=== PATIENT | female | born 1965 | race Caucasian/White ===

== ENCOUNTER 2019-08-02 20:53 | Emergency (ER) | payer SELFPAY ==
--- NOTE | 2019-08-02 20:56 | ECG_ITS ---
Measurements Intervals [place] Rate: 92 P: 78 MA: 161 QRS: 82 QRSD: 93 T: 68 QT: 368 QTc: 455 SINUS RHYTHM No previous ECG available for comparison Electronically Signed On 08-03-2019 18:01:48 CDT by Brett Oviedo M.D. [id number]
--- NOTE | 2019-08-02 20:57 | W.ED.NEUROSD ---
HPI - Neuro Symptoms/Deficit General: Chief Complaint: Neuro Symptoms/Deficit Stated Complaint: DIFF SPEAKING Time Seen by Provider: 08/02/19 20:55 Source: patient and EMS Mode of arrival: EMS History of Present Illness: HPI Narrative: 53-year-old female came in by EMS states she had difficulty speaking 25 minutes before arrival. She states she had some numbness in all extremities as well. Patient was very anxious while given 2 mg of Ativan by EMS. Patient states that her speaking is improved but states this feels like her legs are heavy. She has had no previous symptoms like this previously. Onset (ago): minute(s) (25) Location: speech Severity: moderate Associated symptoms: Deny chest pain, headache(s), nausea or vomiting Review of Systems Const: Denies: fever, chills, body aches or change in appetite Eyes: Denies: blurry vision or eye discomfort ENMT: Denies: throat pain or dental pain Card: Denies: chest pain Resp: Denies: shortness of breath GI: Denies: abdominal pain, nausea, vomiting or diarrhea : Denies: painful urination Musc: Denies: neck pain or back pain Skin/Breast: Denies: rash Neuro: Reports: weakness in extremities; Denies: headache Psych: Denies: depression Antione/Lymph: Denies: easy bruising All/Imm: Denies: hives PFSH ED PFSH: Social History Smoking and tobacco status: current every day smoker Physical Exam Const: COMMON NORMALS: no apparent distress, oriented x3 and healthy appearing GENERAL APPEARANCE: anxious HENMT: COMMON NORMALS: normocephalic and head/scalp atraumatic HEAD & SCALP: normocephalic and atraumatic Eye: COMMON NORMALS: PERRL and EOMs intact bilaterally PUPIL: Yes PERRL Neck/C-Spine: COMMON NORMALS: full ROM and supple Chest: COMMONS NORMALS: inspection of chest normal and palpation of chest normal Resp: COMMON NORMALS: normal respiratory effort, no retractions, no use of accessory muscles and clear to auscultation bilaterally AUSCULTATION: clear to auscultation bilaterally Cardio: COMMON NORMALS: regular rate, regular rhythm and no murmurs RATE: regular rate RHYTHM: regular rhythm GI: COMMON NORMALS: normal to inspection, nondistended, normoactive bowel sounds, soft to palpation, non-tender and no masses PALPATION: Yes soft Extremity: COMMON NORMALS: normal to inspection and full ROM Neuro: COMMON NORMALS: oriented x3 and moves all extremities; negative for no focal motor deficits (slight weakness in left leg) Psych: COMMON NORMALS: mental status grossly normal, thought process normal and cooperative THOUGHT PROCESS: normal thought process Skin: COMMON NORMALS: no rashes or lesions noted and no wounds GENERAL SKIN EXAM: no rashes or lesions noted Course Vital Signs: Vital signs: Vital Signs Temperature 97.9 F 08/02/19 21:05 Pulse Rate 90 08/03/19 01:20 Respiratory Rate 20 H 08/03/19 01:20 Blood Pressure 135/80 08/03/19 01:20 Pulse Oximetry 98 08/03/19 01:20 MDM - Neuro Symptoms/Deficit MDM Narrative: Medical decision making narrative: Patient presents here with methamphetamine abuse. Patient complained of difficulty speaking before she arrived. Patient's had no signs of stroke here. I believe this is likely related to her drug use. Patient was observed here and is now able ambulate and has no complaints. Patient CT head is normal. Patient stable for discharge is to follow-up primary care doctor in 1 to 2 days. Patient is return if worsening. Lab Data: Labs: Lab Results 08/02/19 08/02/19 08/02/19 Range/Units 21:07 21:07 21:07 WBC 9.2 (4.0-10.0) 10^3/ uL RBC 4.37 (4.1-5.3) 10^6/u L Hgb 13.2 (11.5-15.3) g/dL Hct 38.8 (37.0-47.0) % MCV 88.8 (81-99) fL MCH 30.2 (28.0-34.0) pg MCHC 34.0 (30.0-36.0) g/dL RDW 12.8 (12.1-15.1) % Plt Count 308 (130-400) 10^3/c mm MPV 9.1 (7.4-10.4) fL Neut % (Auto) 36.7 % Lymph % (Auto) 47.3 % [place] % (Auto) 8.9 % Eos % (Auto) 6.2 % Baso % (Auto) 0.7 % Neut # (Auto) 3.4 (1.8-7.7) 10^3/u L Lymph # (Auto) 4.4 (0.8-4.8) 10^3/u L [place] # (Auto) 0.8 (0.2-0.9) 10^3/u L Eos # (Auto) 0.6 (0.0-0.8) 10^3/u L Baso # (Auto) 0.1 (0.0-0.1) 10^3/u L Nucleated RBC % (a uto) 0 % Nucleated RBCs # 0.0 /100WBC PT 13.40 H (10.5-13.3) SECO NDS INR 0.99 (0.8-1.2) APTT 29.6 (23.9-36.7) SECO NDS Sodium 140 (136-145) mmol/L Potassium 3.9 (3.5-5.1) mmol/L Chloride 103 (98-107) mmol/L Carbon Dioxide 22 (22-29) mmol/L Anion Gap 18.9 (5-19) BUN 18 (6-20) mg/dL Creatinine 0.8 (0.5-0.9) mg/dL GFR Calculation 75.6 L (90-130) mL/min Glucose 144 H (65-115) mg/dL Calculated Osmolal ity 289 (285-295) mOsm/k g Calcium 10.0 (8.5-10.5) mg/dL Total Bilirubin 0.3 (0.15-1.2) mg/dL AST 18 (0-32) U/L ALT 17 (0-33) U/L Alkaline Phosphata se 109 H (35-105) IU/L Total Protein 7.4 (6.6-8.7) g/dL Albumin 4.5 (3.5-5.2) g/dL Globulin 2.9 (1.3-4.6) g/dL Urine Color (Yellow) Urine Appearance (CLEAR) Urine pH (5-7) Ur Specific Gravit y (1.005-1.030) Urine Protein (Negative) Urine Glucose (UA) (Normal) Urine Ketones (Negative) Urine Blood (Negative) Urine Nitrate (Negative) Urine Bilirubin (NEGATIVE) Urine Urobilinogen (Negative) mg/dL Ur Leukocyte Dia ase (Negative) Urine RBC (0-2) /hpf Urine WBC (0-5) /hpf Ur Squamous Epith Cells (0-5) Urine Bacteria (NONE) Urine Opiates Scre en (Negative) ng/mL Ur Barbiturates Sc reen (Negative) ng/mL Ur Phencyclidine S crn (Negative) ng/mL Ur Amphetamines Sc reen (Negative) ng/mL U Benzodiazepines Scrn (Negative) ng/mL Urine Cocaine Scre en (Negative) ng/mL U Marijuana (THC) Screen (Negative) ng/mL 08/02/19 08/02/19 Range/Units 22:55 22:55 WBC (4.0-10.0) 10^3/ uL RBC (4.1-5.3) 10^6/u L Hgb (11.5-15.3) g/dL Hct (37.0-47.0) % MCV (81-99) fL MCH (28.0-34.0) pg MCHC (30.0-36.0) g/dL RDW (12.1-15.1) % Plt Count (130-400) 10^3/c mm MPV (7.4-10.4) fL Neut % (Auto) % Lymph % (Auto) % [place] % (Auto) % Eos % (Auto) % Baso % (Auto) % Neut # (Auto) (1.8-7.7) 10^3/u L Lymph # (Auto) (0.8-4.8) 10^3/u L [place] # (Auto) (0.2-0.9) 10^3/u L Eos # (Auto) (0.0-0.8) 10^3/u L Baso # (Auto) (0.0-0.1) 10^3/u L Nucleated RBC % (a uto) % Nucleated RBCs # /100WBC PT (10.5-13.3) SECO NDS INR (0.8-1.2) APTT (23.9-36.7) SECO NDS Sodium (136-145) mmol/L Potassium (3.5-5.1) mmol/L Chloride (98-107) mmol/L Carbon Dioxide (22-29) mmol/L Anion Gap (5-19) BUN (6-20) mg/dL Creatinine (0.5-0.9) mg/dL GFR Calculation (90-130) mL/min Glucose (65-115) mg/dL Calculated Osmolal ity (285-295) mOsm/k g Calcium (8.5-10.5) mg/dL Total Bilirubin (0.15-1.2) mg/dL AST (0-32) U/L ALT (0-33) U/L Alkaline Phosphata se (35-105) IU/L Total Protein (6.6-8.7) g/dL Albumin (3.5-5.2) g/dL Globulin (1.3-4.6) g/dL Urine Color Yellow (Yellow) Urine Appearance Clear (CLEAR) Urine pH 6 (5-7) Ur Specific Gravit y 1.020 (1.005-1.030) Urine Protein Trace (Negative) Urine Glucose (UA) Norm (Normal) Urine Ketones Negative (Negative) Urine Blood Trace H (Negative) Urine Nitrate Negative (Negative) Urine Bilirubin 1+ H (NEGATIVE) Urine Urobilinogen 4 H (Negative) mg/dL Ur Leukocyte Dia ase Negative (Negative) Urine RBC 0-4 H (0-2) /hpf Urine WBC None (0-5) /hpf Ur Squamous Epith Cells 0-4 H (0-5) Urine Bacteria 4+ H (NONE) Urine Opiates Scre en Negative (Negative) ng/mL Ur Barbiturates Sc reen Negative (Negative) ng/mL Ur Phencyclidine S crn Negative (Negative) ng/mL Ur Amphetamines Sc reen Positive H (Negative) ng/mL U Benzodiazepines Scrn Positive H (Negative) ng/mL Urine Cocaine Scre en Negative (Negative) ng/mL U Marijuana (THC) Screen Positive H (Negative) ng/mL Imaging Data^: CT Head: Attestation: I personally reviewed and interpreted this imaging study as follows: Radiologist's impression: [address] [address] [address] Scan Report Signed Patient: Helen Mcclellan Unit #: [id number] : 1965 Age/Sex: 53 / F ADM Date: 08/02/19 Loc: ER Room/Bed: Attending Dr: Ordering Provider/Ordering MD: Michael Bobby MD Date of Service: 08/02/19 Procedure(s): CT head wo con* [id number] Accession Number(s): [id number] Report Number: [id number] PROCEDURE INFORMATION: Exam: CT Head Without Contrast Exam date and time: 08/02/2019 8:57 PM Age: 53 years old Clinical indication: Speech disturbance; Patient HX: Sudden onset of stuttered speech. ; Additional info: Symptoms of acute stroke TECHNIQUE: Imaging protocol: Computed tomography of the head without contrast. Total DLP: 1904.034 mGy-cm Radiation optimization: All CT scans at this facility use at least one of these dose optimization techniques: automated exposure control; mA and/or kV adjustment per patient size (includes targeted exams where dose is matched to clinical indication); or iterative reconstruction. Other technique: STROKE PROTOCOL was implemented. COMPARISON: No relevant prior studies available. FINDINGS: Brain: No hemorrhage or CT evidence of acute infarction is seen. Ventricles: Normal. No ventriculomegaly. Bones/joints: Unremarkable. No acute fracture. Sinuses: Sphenoid sinusitis is noted. Mastoid air cells: Visualized mastoid air cells are well aerated. Soft tissues: Unremarkable. CT/CT head wo con* [id number] IMPRESSION: No acute intracranial abnormality. Mild sinusitis is noted. EKG Data^: EKG 1: Attestation: I personally reviewed and interpreted this EKG as follows: EKG interpretation date: 08/02/19 EKG interpretation time: 21:37 Interpretation: nsr hr [address] or t wave abnormalities qrs 93 qtc 417 Discharge Plan Discharge Patient Disposition: Home, Self-Care Clinical Impression: Methamphetamine abuse, Dysarthria Condition: Stable Discharge Orders: Discharge Order (Routine); Ordered 08/03/19 Ordered By: Michael Bobby Discharge Diet: Advance as tolerated Discharge Activity: Resume usual activity Patient Instructions: Methamphetamine Abuse (ED) Discharge Date/Time: 08/03/19 01:20 Coding Level of Care Code ED Proof Machine Operator for Chg Fwd Exam Comprehensive
[2019-08-02 21:05] VITALS: BP 121/80; PULSE 99; RESP 20; TEMP 36.6; O2SAT 100; BMI 25.9
[2019-08-02 21:13] LABS: Basophils # 0.1 10^3/uL (0.0-0.1); Basophils % 0.7 %; Eosinophils # 0.6 10^3/uL (0.0-0.8); Eosinophils % 6.2 %; Hematocrit 38.8 % (37.0-47.0); Hemoglobin 13.2 g/dL (11.5-15.3); Lymphocytes # 4.4 10^3/uL (0.8-4.8); Lymphocytes % 47.3 %; Mean Corpuscular Hemoglobin 30.2 pg (28.0-34.0); Mean Corpuscular Volume 88.8 fL (81-99); Mean Platelet Volume 9.1 fL (7.4-10.4); Monocytes # 0.8 10^3/uL (0.2-0.9); Monocytes % 8.9 %; Neutrophils # 3.4 10^3/uL (1.8-7.7); Neutrophils % 36.7 %; Nucleated Red Blood Cells % 0 %; Platelet Count 308 10^3/cmm (130-400); Red Blood Count 4.37 10^6/uL (4.1-5.3); Red Cell Distribution Width 12.8 % (12.1-15.1); White Blood Count 9.2 10^3/uL (4.0-10.0)
--- NOTE | 2019-08-02 21:17 | P.PNCC_ITS ---
Stroke Alert Activation ED Arrival Date: 08/02/19 Last Known Normal/at Baseline: < 1 hour ago Stroke Alert Activated by: er Stroke Alert Activation Date: 08/02/19 Stroke Alert Activation Time: 20:53 Stroke MD @ Bedside Date: 08/02/19 Stroke MD @ Bedside Time: 21:00 NIH Stroke Scale Time: 21:20 NIH Stroke Scale Score: NIH Stroke Scale Score: 0 Stroke Alert Data/Treatment Other Information: Sudden onset at work of difficulty speaking and seizure like activity which was described by EMS as shaking all over without loss of conciousness. This occured about 45 minutes prior to arrival to ER. She was given 2mg lorezepam by EMS. EMS did not note lateralized weakness. On arrival to ER was noted to have 'garbled speech and some confusion with drowsiness. she complained about 'heaviness' in all her extremities. On my exam, she has no drift in either arm or either leg. no ataxia. no cranial nerve deficit. no language deficit. no sensory deficit. She is not a candidate for thrombolysis as she has a nonfocal exam. She may have had either a seizure causing language dysfunction or a panic attack. Either of these were treated with the ativan administered by EMS, and the ativan likely resulted in the drowsiness and 'heaviness' noted on initial assesment in ER. I would recommend observation and an MRI brain to rule out structural cause for seizure as well as a UDS. Critical Care Time Critical Care Time: 30 - 74 mins Coding Level of Care Code Acute Integrated Logistics Programs Director for David Elias
[2019-08-02 21:31] LABS: INR 0.99 (0.8-1.2)
[2019-08-02 21:32] LABS: Partial Thromboplastin Time 29.6 SECONDS (23.9-36.7)
[2019-08-02 21:40] LABS: Alanine Aminotransferase 17 U/L (0-33); Albumin Level 4.5 g/dL (3.5-5.2); Alkaline Phosphatase 109 IU/L (35-105); Anion Gap 18.9 (5-19); Aspartate Amino Transferase 18 U/L (0-32); Blood Urea Nitrogen 18 mg/dL (6-20); Carbon Dioxide 22 mmol/L (22-29); Chloride 103 mmol/L (98-107); Globulin 2.9 g/dL (1.3-4.6); Glomerular Filtration Rate 75.6 mL/min (90-130); Glucose 144 mg/dL (65-115); Osmolality Calculated 289 mOsm/kg (285-295); Potassium 3.9 mmol/L (3.5-5.1); Sodium 140 mmol/L (136-145); Total Bilirubin 0.3 mg/dL (0.15-1.2); Total Protein 7.4 g/dL (6.6-8.7)
[2019-08-02 23:02] VITALS: BP 109/72; PULSE 87; RESP 20; O2SAT 98
[2019-08-02 23:03] VITALS: BP 109/72; PULSE 87; RESP 20
[2019-08-02 23:13] LABS: Glucose Urine UA Norm (Normal); Ketones Urine Negative (Negative); Protein Urine Trace (Negative); Urine Appearance Clear (CLEAR); Urine Color Yellow (Yellow); pH Urine 6 (5-7)
[2019-08-02 23:14] LABS: Add Urine Microscopic? YES; Bilirubin Urine 1+ (NEGATIVE); Blood Urine Trace (Negative); Leukocyte Esterase Urine Negative (Negative); Nitrate Urine Negative (Negative); Urobilinogen Urine 4 mg/dL (Negative)
[2019-08-02 23:30] VITALS: BP 99/73; PULSE 86; RESP 19
[2019-08-02 23:37] LABS: RBC Urine 0-4 /hpf (0-2)
[2019-08-02 23:38] LABS: Add Urine Culture? No; Bacteria Urine 4+; Squamous Epithelial Cell Urine 0-4 (0-5)
[2019-08-03] VITALS: BP 103/74; PULSE 84; RESP 18
[2019-08-03 00:01] LABS: Amphetamines Screen Urine Positive (Negative); Barbiturates Screen Urine Negative (Negative); Benzodiazepines Screen Urine Positive (Negative); Cocaine Screen Urine Negative (Negative); Opiate Screen Urine Negative (Negative); PCP Screen Urine Negative (Negative); THC Screen Urine Positive (Negative)
[2019-08-03 00:30] VITALS: BP 125/92; PULSE 79; RESP 20
[2019-08-03 01:00] VITALS: BP 121/73; PULSE 84; RESP 15
[2019-08-03 01:20] VITALS: BP 135/80; PULSE 90; RESP 20; O2SAT 98
== END 2019-08-03 01:20 | disposition home or self-care (01) ==
PROVIDERS: Emergency Provider Emergency Medicine
DX: F15.10 Other stimulant abuse, uncomplicated (principal); R47.1 Dysarthria and anarthria; F17.200 Nicotine dependence, unspecified, uncomplicated
CPT/HCPCS: 12345; 36415; 70450; 80053; 80306; 81001; 85025; 85610; 85730; 93005; 99284

== ENCOUNTER 2019-09-28 19:52 | Inpatient (IN) | payer SELFPAY ==
[2019-09-28 19:55] VITALS: BP 135/87; BP 140/78; PULSE 90; PULSE 92; RESP 18; RESP 20; TEMP 36.8; O2SAT 97; O2SAT 98; BMI 21.6
[2019-09-28] MEDS: diphenhydrAMINE 50 mg/mL SDV 1mL IM (20:15)
[2019-09-28] MEDS: haloperidol inj 5 mg/mL INJ 1 mL IM (20:15)
[2019-09-28 20:42] LABS: Basophils # 0.1 10^3/uL (0.0-0.1); Basophils % 0.7 %; Eosinophils # 0.3 10^3/uL (0.0-0.8); Eosinophils % 2.3 %; Hematocrit 41.5 % (37.0-47.0); Hemoglobin 13.7 g/dL (11.5-15.3); Lymphocytes # 4.1 10^3/uL (0.8-4.8); Lymphocytes % 35.2 %; Mean Corpuscular Hemoglobin 29.6 pg (28.0-34.0); Mean Corpuscular Volume 89.6 fL (81-99); Mean Platelet Volume 8.8 fL (7.4-10.4); Monocytes % 8.8 %; Neutrophils # 6.1 10^3/uL (1.8-7.7); Neutrophils % 52.7 %; Nucleated Red Blood Cells % 0 %; Platelet Count 284 10^3/cmm (130-400); Red Blood Count 4.63 10^6/uL (4.1-5.3); Red Cell Distribution Width 12.9 % (12.1-15.1); White Blood Count 11.5 10^3/uL (4.0-10.0)
--- NOTE | 2019-09-28 21:10 | W.ED.PSYCH ---
HPI - Psych General: Chief Complaint: Psychiatric Symptoms Stated Complaint: SI Time Seen by Provider: 09/28/19 19:59 History of Present Illness: HPI Narrative: Helen is a 54-year-old female who was brought in by police and EMS. Apparently she was at [facility] when she expressed up with the police that she had Ambien intended to take it to make the world go away. When pressed she admitted to being suicidal. Patient was brought here agitated and combative. She does admit to me that she wants to take the medicine to kill herself. Patient is tearful and acting bizarre and much meaningful history cannot be taken. Review of Systems General: Reports: ROS unobtainable due to medical condition PFSH ED PFSH: Social History Smoking and tobacco status: current every day smoker Physical Exam Const: COMMON NORMALS: no acute distress, patient oriented x3, healthy appearing and well nourished GENERAL APPEARANCE: cooperative, well kempt and well developed HENMT: COMMON NORMALS: normocephalic, atraumatic, hearing grossly normal bilaterally, external ears normal, EAC's normal, Normal external nose present and moist oral mucous membranes HEAD & SCALP: normocephalic and atraumatic NOSE: Normal external nose present and Normal nares present EXTERNAL EAR: Yes external ears normal EXTERNAL AUDITORY CANAL: EAC's normal MOUTH: Normal oral and palatal mucosa present, lip normal and tongue normal Eye: COMMON NORMALS: Equal, round and reactive pupils present, EOMs intact bilaterally, conjunctivae normal and no scleral icterus GENERAL EYE: appearance normal, both eyes and all related structures ALIGNMENT: Yes alignment normal PERIORBITAL: periorbital findings normal EYELID: eyelids normal CONJUNCTIVA: Yes conjunctivae normal SCLERA: sclerae normal PUPIL: Yes Equal, round and reactive pupils present Neck/C-Spine: COMMON NORMALS: full ROM, no lymphadenopathy, supple, no meningeal signs and no JVD GENERAL: Yes normal visual inspection and Yes trachea midline Chest: COMMONS NORMALS: normal inspection of the chest and normal palpation of entire chest wall Resp: COMMON NORMALS: normal respiratory effort, No retractions, No use of accessory muscles and clear to auscultation bilaterally EFFORT & INSPECTION: Yes able to speak in complete sentences and Yes symmetric chest movement AUSCULTATION: clear to auscultation bilaterally, no crackles, no rales, no rhonchi and no wheezes Cardio: COMMON NORMALS: no JVD, regular rate, regular rhythm, S1 normal heart sound present, S2 normal heart sound present, No gallops present (Cardio), No clicks present (Cardio), No murmurs present (Cardio) and No rub (Cardio) RATE: regular rate RHYTHM: regular rhythm HEART SOUNDS: S1 normal heart sound present and S2 normal heart sound present GI: COMMON NORMALS: Soft to palpation and No hepatosplenomegaly present PALPATION: Yes Soft to palpation, No Tenderness to palpation present (GI), No Guarding due to palpation present (GI), No Rigid due to palpation, Yes No hepatosplenomegaly present, No Hernia present, No Palpable mass present and No Pulsatile mass present : COMMON NORMALS: Yes no CVA tenderness BLADDER/KIDNEY EXAM: Yes no CVA tenderness EXTERNAL FEMALE EXAM: No Hernia present Back/Pelvis: COMMON NORMALS: no CVA tenderness, thoracic and lumbar spine normal to inspection, no thoracic nor lumbar tenderness and thoraco-lumbar ROM normal Extremity: COMMON NORMALS: normal to inspection, full ROM, capillary refill normal, no joint enlargement, no clubbing, cyanosis or edema and no calf tenderness Neuro: COMMON NORMALS: patient oriented x3, CN's II-XII intact bilaterally, moves all extremities, no focal motor deficits and no sensory deficits noted MENINGEAL SIGNS: Yes no meningeal signs SPEECH: speech normal Psych: APPEARANCE: Yes well kempt ATTITUDE: Yes uncooperative, Yes evasive, Yes Belligerent attititude/behavior present, Yes agitated and Yes aggressive ACTIVITY/MOTOR BEHAVIOR: Yes disorganized behavior and Yes restless SPEECH: Yes rapid, Yes loud and Yes Pressured speech present MOOD & AFFECT: Yes tearful Skin: COMMON NORMALS: no rashes or lesions noted, turgor normal, no jaundice, no petechiae and no mottling GENERAL SKIN EXAM: no rashes or lesions noted and turgor normal Discharge Plan Discharge Prescriptions: No Action Unable to Assess RF: 0 Coding Level of Care Code ED Bag End Sewer for Chg Jada
[2019-09-28 21:13] LABS: HCG, Serum Qual Negative (Negative)
[2019-09-28 21:18] LABS: Slide Review Slide Review Perform
[2019-09-28 21:20] LABS: Lithium 0.1 mmol/L (0.6-1.2)
[2019-09-28 21:23] LABS: Alanine Aminotransferase 13 U/L (0-33); Albumin Level 4.6 g/dL (3.5-5.2); Alkaline Phosphatase 106 IU/L (35-105); Anion Gap 16.4 (5-19); Aspartate Amino Transferase 17 U/L (0-32); Blood Urea Nitrogen 17 mg/dL (6-20); Calcium 9.7 mg/dL (8.5-10.5); Carbon Dioxide 22 mmol/L (22-29); Chloride 100 mmol/L (98-107); Creatine Phosphokinase 201 U/L (26-192); Globulin 2.9 g/dL (1.3-4.6); Glomerular Filtration Rate 87.9 mL/min (90-130); Glucose 104 mg/dL (65-115); Magnesium 2.2 mg/dL (1.7-2.3); Osmolality Calculated 277 mOsm/kg (285-295); Phenytoin Dilantin 0.8 ug/mL (10-20); Potassium 3.4 mmol/L (3.5-5.1); Sodium 135 mmol/L (136-145); Thyroid Stimulating Hormone 3.36 uIU/mL (0.27-4.20); Total Bilirubin 0.3 mg/dL (0.15-1.2); Total Protein 7.5 g/dL (6.6-8.7); Valproic Acid Level 2.8 mcg/mL (50-100)
[2019-09-28 21:32] LABS: Acetaminophen < 5.0 ug/mL (10-30); Alcohol Level < 10 mg/dL (0-10); Salicylate < 0.3 mg/dL (3-10)
[2019-09-28 22:29] VITALS: BP 110/69; PULSE 77; RESP 21; TEMP 36.6; O2SAT 96
[2019-09-28 22:35] VITALS: BP 110/69; PULSE 77; RESP 21; TEMP 36.6; O2SAT 96
[2019-09-29 06:00] VITALS: BP 123/78; PULSE 73; RESP 18; TEMP 36.9; O2SAT 97
[2019-09-29 14:00] VITALS: BP 114/77; PULSE 85; RESP 18; TEMP 36.7; O2SAT 97
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
[2019-09-29 21:39] VITALS: BP 110/76; PULSE 108; RESP 22; TEMP 36.8; O2SAT 95
[2019-09-30 06:00] VITALS: BP 113/74; PULSE 64; RESP 18; TEMP 36.6; O2SAT 98
[2019-09-30] MEDS: OLANZapine 5 mg ODT PO ×2 (07:09→21:38)
[2019-09-30] MEDS: lithium carbonate 150 mg Capsule PO ×2 (08:28→17:35)
--- NOTE | 2019-09-30 10:39 | PC.RESP ---
Smoking Cessation information and a schedule of classes to patient.
[2019-09-30 14:00] VITALS: BP 116/71; PULSE 70; RESP 18; TEMP 37; O2SAT 97
--- NOTE | 2019-09-30 20:50 | PM.NPN ---
Subjective NPU Subjective: Interval history: Ms. Mcclellan is smoother in her speech and more organized in her thinking. The pressure of speech has waned. She feels less scattered is asking to return home. She is worried about her animals. Now that she is not racing I am willing to discuss this tomorrow Medications: Reviewed: Yes Medication Review Details: Current Medications Acetaminophen (Tylenol) 650 mg PO Q4H PRN PRN Reason: MILD PAIN Benztropine Mesylate (Cogentin) 1 mg PO BID PRN PRN Reason: Mild Extrapyramidal symptoms Camphor/Menthol/Phenol (Blistex) 1 applic TOPICAL Q1H PRN PRN Reason: DRYNESS Diphenhydramine HCl (Benadryl) 50 mg IM ONCE PRN PRN Reason: Severe Extrapyramidal Symptoms Diphenhydramine HCl (Benadryl) 50 mg IM Q4H PRN PRN Reason: Severe Aggression Haloperidol (Haldol) 5 mg PO Q4H PRN PRN Reason: AGITATION Haloperidol Lactate (Haldol Inj) 5 mg IM Q4H PRN PRN Reason: Severe Aggression Hydroxyzine Pamoate (Vistaril) 50 mg PO Q6H PRN PRN Reason: ANXIETY Lititz Carbonate (Eskalith) 150 mg PO BID NIKO Last Admin: 09/30/19 17:35 Dose: 150 mg Documented by: Loperamide HCl (Imodium Capsule) 2 mg PO Q6H PRN PRN Reason: DIARRHEA Lorazepam (Ativan) 2 mg IM Q4H PRN PRN Reason: Severe Aggression Nicotine (Nicoderm 21 Mg Patch) 1 patch TRANSDERMA DAILY PRN PRN Reason: NICOTINE WITHDRAWAL Nicotine Polacrilex (Nicorette) 2 mg BUCCAL Q2H PRN PRN Reason: NICOTINE WITHDRAWAL Olanzapine (Zyprexa Zydis) 5 mg PO Q4H PRN PRN Reason: Agitation/Psychosis Last Admin: 09/30/19 07:09 Dose: 5 mg Documented by: Ondansetron HCl (Zofran) 4 mg PO Q6H PRN PRN Reason: NAUSEA AND VOMITING Trazodone HCl (Desyrel) 50 mg PO BEDTIME PRN PRN Reason: SLEEP Mental Status Exam MSE Comments: Patient looks better organized to her hair is less blown to the wind. Mood is brighter and affect is appropriate. Thought processes are integrated and now free of racing, flight of ideas and grandiosity. Speech is of normal rate and volume, without dysarthria, aprosody or pressure. She denies suicidal or homicidal ideation, plan or intent. Vitals/I&O/Wt Last Vital Signs Temp 98.6 F 09/30/19 14:00 Pulse 70 09/30/19 14:00 Resp 18 09/30/19 14:00 BP 116/71 09/30/19 14:00 Pulse Ox 97 09/30/19 14:00 Data NPU : 09/28/19 20:37 09/28/19 20:37 A&P Assessment and plan (1) Bipolar disorder, current episode manic without psychotic features, moderate: The patient's morteza is waning. Status: Acute Involuntary Hold Information 96 Hour Hold: 96 Hour Involuntary Admission: Yes Attestations NPU Medical Necessity Statement*: I anticipate 1 or 2 nights additional stay. Time Spent in Patient Care: Greater than 35 minutes (>than 50% of time spent in counselling and/or direct pt care on unit). Coding Level of Care Code Acute Electrolytic Etcher for David Fwd Diagnoses Bipolar disorder, current episode manic without psychotic features, moderate F31.12
[2019-09-30] MEDS: trazodone 50 mg Tablet PO (21:38)
[2019-09-30 22:00] VITALS: BP 145/74; PULSE 76; RESP 17; TEMP 36.5; O2SAT 98
[2019-10-01 06:00] VITALS: BP 118/81; PULSE 61; RESP 16; TEMP 36.9; O2SAT 93
[2019-10-01] MEDS: OLANZapine 5 mg ODT PO (12:08)
[2019-10-01 14:00] VITALS: BP 111/80; PULSE 114; RESP 18; TEMP 36.6; O2SAT 97
--- NOTE | 2019-10-01 16:56 | PM.NDC ---
Diagnoses at Discharge Discharge Diagnosis (1) Bipolar disorder, current episode manic without psychotic features, moderate: Status: Acute Problem details: Patient is a lot slower. His speech is less pressured. There is no psychotic element. Reason for Visit Reason for Visit: SI Hospital Course Hospital Course The patient's responded very well to the absence of methamphetamine and the presence of lithium. It is difficult to kadi which has been more important in her recovery. Involuntary Hold Information 96 Hour Hold: 96 Hour Involuntary Admission: Yes Mental Status Exam MSE Comments: Patient looks better organized to her hair is less blown to the wind. Mood is brighter and affect is appropriate. Thought processes are integrated and now free of racing, flight of ideas and grandiosity. Speech is of normal rate and volume, without dysarthria, aprosody or pressure. She denies suicidal or homicidal ideation, plan or intent. Discharge Data Data Completed and Pending: Pending at discharge Category Date Time Status Drug Screen, Urin e Stat Lab 09/28/19 20:00 Uncollected Vitals: Last Vital Signs Temp 97.9 F 10/01/19 14:00 Pulse 114 H 10/01/19 14:00 Resp 18 10/01/19 14:00 BP 111/80 10/01/19 14:00 Pulse Ox 97 10/01/19 14:00 Discharge Plan Discharge Patient Disposition: Home, Self-Care Condition: Stable Prescriptions: No Action No Known Home Medications RF: 0 Referrals: [facility] [Outside] - 1-3 days (you will need to check with [facility] about getting a scheduled appointment for individual therapy and psychiatric medication management. Referrals to get appointments are pending. ) [facility] [Outside] (If interested and needed, [facility] can provide you substance abuse treatment. ) Discharge Diet: Usual diet Discharge Activity: Resume usual activity Discharge Attestations NPU Time Spent in Discharge Care*: greater than 30 min Specific Discharge Activities: Specific discharge activities: educating patient, discussing with pcp/other providers, discussing with case briefer/social workers/dc planners and documenting/other paperwork Time Spent in Smoking Cessation: Time spent discussing smoking cessation with patient: 3 to 10 minutes Status at Discharge: Cognitive status at discharge: cognitively intact, Behavioral status at discharge: cooperative, Functional status at discharge: independent ambulation Overall status at discharge: patient is back to baseline Coding Level of Care Code Acute Transmission Builder for Chg Fwd Diagnoses Bipolar disorder, current episode manic without psychotic features, moderate F31.12
[2019-10-01 18:35] VITALS: BP 111/80; PULSE 114; RESP 18; TEMP 36.6; O2SAT 97
== END 2019-10-01 18:53 | disposition home or self-care (01) | DRG 885 ==
LOC: ER 21:32 → NP 21:49
PROVIDERS: Emergency Medicine; Admitting Provider Psychiatry & Neurology Psychiatry; Visit Provider Psychiatry & Neurology Psychiatry
DX: F31.12 Bipolar disorder, current episode manic without psychotic features, moderate (principal); R45.851 Suicidal ideations; F17.210 Nicotine dependence, cigarettes, uncomplicated
CPT/HCPCS: 12345; 80053; 80156; 80164; 80178; 80185; 80307; 82550; 83735; 84443; 84703; 85025; 96372; 99281; J1200; J1630

== ENCOUNTER → 2020-01-11 14:22 | Outpatient (BNVA) | payer SELFPAY | PROVIDERS: Visit Provider Nurse Practitioner | DX: M79.632 Pain in left forearm (principal); S50.12XA Contusion of left forearm, initial encounter; W11.XXXA Fall on and from ladder, initial encounter | CPT/HCPCS: 73090 ==

== ENCOUNTER 2020-03-15 07:23 | Emergency (ER) | payer SELFPAY ==
--- NOTE | 2020-03-15 07:31 | XR_ITS ---
WS: [id number] LEFT KNEE: 3 VIEW(S) TECHNIQUE: AP, oblique(s) and lateral. HISTORY: injury COMPARISON: None available. Acute minimally depressed fracture involving the lateral tibial plateau. No joint space narrowing. No joint space narrowing or osteophytes. Large lipohemarthrosis in the suprapatellar joint space. No soft tissue abnormality. XR/XR knee LT 3V* [id number] IMPRESSION: 1. Minimally depressed lateral tibial plateau fracture. 2. Large lipohemarthrosis.
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
[2020-03-15 07:40] VITALS: BP 138/78; PULSE 96; RESP 22; O2SAT 97; BMI 23.1
[2020-03-15 07:46] VITALS: PULSE 90
--- NOTE | 2020-03-15 07:51 | CT_ITS ---
WS: [id number] CT ANGIOGRAPHY LIMITED EVALUATION. HISTORY: LEFT pain after fall. Possible vascular injury. TECHNIQUE: Arterial injection is performed during imaging to evaluate femoral and popliteal arteries. MIP and volume rendering imaging has also been performed. All images are reviewed. All CT scans at [facility] use at least one of these dose optimization techniques: automated exposure contr ol; mA and/or kV adjustment per patient size (includes targeted exams where dose is matched to clinic al indication); or iterative reconstruction. Contrast: Omnipaque 350; 95 mL IV. DLP: 342.57 mGy.cm COMPARISON: LEFT knee radiograph 03/15/2020 There is very good opacification with normal size of the mid to distal superficial femoral arteries t o the popliteal arteries. Tibioperoneal trunks are intact. There is limited runoff beyond the tibiope roneal trunk on the RIGHT which may be related to the timing of injection. Runoff also becomes limite d in the proximal tibial arteries on the LEFT. There is no extravasation or pseudoaneurysm identified . No hematoma has developed. There is a large lipohemarthrosis on the LEFT. Patient has a nondisplaced LEFT tibial plateau fractur e involving the lateral and predominantly posterior tibial plateau. No significant depression along t he fracture line. Fibular head [place] intact. [place] [id number] IMPRESSION: 1. CT angiogram focus and limited to the mid to distal superficial femoral art arely and popliteal artery. No pseudoaneurysm or extravasation or arterial injury identified. Runoff is limited beyond the tibioperoneal trunks bilaterally. 2. Nondepressed LEFT lateral tibial plateau fracture. 3. Large lipohemarthrosis LEFT knee.
[2020-03-15 07:57] VITALS: RESP 22; O2SAT 100
[2020-03-15] MEDS: HYDROmorphone 1 mg/mL INJ 1 mL IVP (07:57)
[2020-03-15] MEDS: iohexol 350 mg/mL 100 mL Btl IV (08:13)
[2020-03-15 09:48] VITALS: BP 135/94; PULSE 109; RESP 20; O2SAT 97
--- NOTE | 2020-03-15 10:05 | DCPLANNER ---
manager diversity was asked to schedule a follow up appointment for patient with Dr. Rodriguez at ortho. manager diversity called the ortho clinic, spoke with Lorie, gave clinic patients information. manager diversity was told that patients information would be printed and reviewed. Clinic will call patient with appointment information.
--- NOTE | 2020-03-16 10:12 | DCPLANNER ---
Patient has a follow up appointment scheduled for Thursday, March 16, 2020 at 10:[address] Rodriguez. Clinic will call patient with appointment information.
--- NOTE | 2020-03-28 13:28 | DCPLANNER ---
Patient had a follow up appointment scheduled for 03.16.20 with ortho - patient did not attend appointment.
== END 2020-03-15 09:35 | disposition home or self-care (01) ==
PROVIDERS: Emergency Provider Emergency Medicine
DX: S82.142A Displaced bicondylar fracture of left tibia, initial encounter for closed fracture (principal); F17.210 Nicotine dependence, cigarettes, uncomplicated; W17.89XA Other fall from one level to another, initial encounter
CPT/HCPCS: 12345; 29530; 73562; 73706; 96374; 96375; 99282; 99283; E0114; J1170; Q9967

== ENCOUNTER 2021-09-05 16:35 | Inpatient (IN) | payer SELFPAY ==
[2021-09-05] VITALS (7 sets, daily range): BP systolic 120–145; BP diastolic 82–99; PULSE 72–108; RESP 16–18; TEMP 36.7–36.9; O2SAT 94–99; BMI 24.0
--- NOTE | 2021-09-05 18:02 | ED.C_ITS ---
HPI - Psych General: Chief Complaint: Psychiatric Symptoms Stated Complaint: 96 court order Time Seen by Provider: 09/05/21 17:16 Source: patient Mode of arrival: other (police) Limitations: no limitations History of Present Illness: This patient was transported here for medical clearance for psychiatric evaluation. She has been placed on a court ordered 96-hour hold. Logically she has been threatening to hang herself and so therefore her engaged assistance in getting her evaluated. The patient freely admits that she is quite upset at this time. She states her has been engaged in a extramarital affair and that she has been upset because of that and is told him that she might want to hang her self at home so that he would come home and find out what he is done to her because of his activity. She freely admits to me that she smokes marijuana to help her chronic depression and has on occasion used methamphetamine most recently yesterday and today because she states that it is helped her in the past cope with stressful situations. She denies other street drugs or alcohol ingestion. She admits that she has had treatment for depression in the past and hospitalizations. She will not outline any clear plan of self-harm at this time. She states she has not been sleeping well the last couple of days and has not eaten much today. She denies any other constitutional complaints at this time. complaint: suicidal ideation and feels depressed Context: recent drug abuse and significant life stressor Associated psychiatric symptoms: suicidal ideation Associated symptoms: Reports depression Treatments prior to arrival: placed on mental health hold If self harm: admits thoughts of self harm Review of Systems Const: Denies: fever(s) or chills Eyes: Denies: change in vision or blurry vision ENMT: Denies: throat pain or odynophagia Card: Denies: chest pain, palpitations or irregular heart rhythm Resp: Denies: dyspnea, productive cough or non-productive cough GI: Denies: abdominal pain, nausea or vomiting : Denies: flank pain, difficulty voiding, dysuria or urinary frequency Musc: Denies: neck pain, back pain, extremity pain or extremity swelling Skin/Breast: Denies: rash or pruritus Neuro: Denies: headache(s), numbness in extremities, weakness in extremities, dizziness, vertigo or confusion Psych: Reports: depression and sleeping less Endo: Denies: polyuria, polydipsia, tired all the time or cold intolerance Antione/Lymph: Denies: easy bruising or easy bleeding PFSH ED PFSH: Social History Smoking and tobacco status: current every day smoker Physical Exam Narrative: EXAM NARRATIVE: Is comfortable and cooperative. She makes good eye contact. She will answer questions in a goal-directed fashion. Const: COMMON NORMALS: no acute distress, average body habitus and patient oriented x3 GENERAL APPEARANCE: cooperative and comfortable HENMT: COMMON NORMALS: normocephalic, atraumatic, Normal nasal mucous membranes and turbinates present and moist oral mucous membranes HEAD & SCALP: normocephalic and atraumatic NOSE: Normal nasal mucous membranes and turbinates present Eye: COMMON NORMALS: Equal, round and reactive pupils present, EOMs intact bilaterally and conjunctivae normal CONJUNCTIVA: Yes conjunctivae normal PUPIL: Yes Equal, round and reactive pupils present Neck/C-Spine: COMMON NORMALS: full ROM, supple and no meningeal signs Lymph: LYMPHATIC: no lymphadenopathy noted Chest: COMMONS NORMALS: normal inspection of the chest Resp: COMMON NORMALS: normal respiratory effort, No retractions, No use of accessory muscles and clear to auscultation bilaterally AUSCULTATION: clear to auscultation bilaterally Cardio: COMMON NORMALS: regular rate, regular rhythm, No murmurs present (Cardio) and Peripheral pulses 2+ throughout RATE: regular rate RHYTHM: regular rhythm PERIPHERAL PULSES: Peripheral pulses 2+ throughout GI: COMMON NORMALS: Normal to inspection, nondistended, normoactive bowel sounds present, Soft to palpation and non-tender PALPATION: Yes Soft to p alpation : COMMON NORMALS: Yes no CVA tenderness BLADDER/KIDNEY EXAM: Yes no CVA tenderness Back/Pelvis: COMMON NORMALS: no CVA tenderness, thoracic and lumbar spine normal to inspection, no thoracic nor lumbar tenderness and straight leg raise negative bilaterally Extremity: COMMON NORMALS: normal to inspection, full ROM, capillary refill normal and no pedal edema Neuro: COMMON NORMALS: patient oriented x3, moves all extremities, no focal motor deficits, no sensory deficits noted and gait normal MENINGEAL SIGNS: Yes no meningeal signs CRANIAL NERVES: Yes CN normal except as noted SPEECH: speech normal Psych: COMMON NORMALS: Normal thought process present, cooperative, normal affect, speech normal and denies hallucinations ATTITUDE: Yes calm ACTIVITY/MOTOR BEHAVIOR: Yes appropriate eye contact SPEECH: Yes normal speech MOOD & AFFECT: Yes depressed mood and Yes apathetic THOUGHT PROCES S: Normal thought process present THOUGHT CONTENT: Yes Suicidality present and No Homicidality present ATTENTION/CONCENTRATION: Yes attention grossly intact INSIGHT: Fair insight present (Psych) JUDGEMENT: Fair judgement present (Psych) Skin: COMMON NORMALS: no rashes or lesions noted, no wounds and turgor normal GENERAL SKIN EXAM: no rashes or lesions noted and turgor normal Course Reevaluation(s): Reevaluation #1: Patient presents with a court ordered 96-hour hold. No active plan but long- term suicidality is unclear at this time given her clinical condition. We will perform normal screening labs however based on her clinical appearance I feel that she is appropriate to be admitted for further mental health evaluation. Reevaluation #2: Patient remained relatively cooperative. She is obviously not here voluntarily so she is not particularly happy but certainly at this point no evidence of an ongoing medical condition. She does have a slightly low potassium however no other medical conditions obvious on her clinical exam or cursory laboratory exam that would preclude her being hospitalized for mental health evaluation. She is positive for the recreational substances that she is admitted to. Time: 20:20 Consultations: Consultation #1: Discussed with Dr. Lora who is on-call for psychiatry. He agrees to accept the patient. Time: 20:20 Vital Signs: Vital signs: Vital Signs Pulse Rate 84 09/05/21 18:36 Respiratory Rate 18 09/05/21 17:28 Blood Pressure 120/84 09/05/21 18:36 Pulse Oximetry 99 09/05/21 18:36 MDM - Psych Medical Decision Making Patient on a court ordered 96-hour hold presented here for medical screening prior to psychiatric admission. The patient's medical screening examination is unremarkable for any clinical findings of concern. She does have an incidental hypokalemia that was corrected orally in the emergency department. She also has positive for methamphetamine as well as THC both of which she is readily admitted to. Medically cleared for mental health admission. Medical Records I reviewed the patient's medical records. Lab Data I reviewed the patient's lab results. : 09/05/21 19:25 09/05/21 19:25 Laboratory Results WBC 6.9 10^3/uL (4.0-10.0) 05/12/22 19: RBC 4.91 10^6/uL (4.1-5.3) 09/05/21: Hgb 14.9 g/dL (11.5-15.3) 09/05/21: Hct 43.2 % (37.0-47.0) 09/05/21: MCV 88.0 fl (81-99) 09/05/21: MCH 30.3 pg (28.0-34.0) 09/05/21: MCHC 34.5 g/dL (30.0-36.0) 09/05/21: RDW 12.7 % (12.1-15.1) 09/05/21 Plt Count 311 10^3/cmm (130-400) 09/05/21: MPV 9.0 fL (7.4-10.4) 09/05/21: Neut % (Auto) 67.4 % 09/05/21: Lymph % (Auto) 23.7 % 09/05/21: [place] % (Auto) 7.6 % 09/05/21: Eos % (Auto) 0.7 % 09/05/21: Baso % (Auto) 0.3 % 09/05/21 Neut # (Auto) 4.63 10^3/uL (1.8-7.7) 09/05/21: Lymph # (Auto) 1.6 10^3/uL (0.8-4.8) 09/05/21: [place] # (Auto) 0.5 10^3/uL (0.2-0.9) 09/05/21: Eos # (Auto) 0.1 10^3/uL (0.0-0.8) 09/05/21 Baso # (Auto) 0.0 10^3/uL (0.0-0.1) 09/05/21 Nucleated RBC % (auto) 0 % 09/05/21 Nucleated RBCs # 0.0 /100WBC 09/05/21 Sodium 132 mmol/L (136-145) L 09/05/21 19:25 Potassium 3.2 mmol/L (3.5-5.1) L 09/05/21 19:25 Chloride 98 mmol/L (98-107) 09/05/21 19:25 Carbon Dioxide 20 mmol/L (22-29) L 09/05/21 19:25 Anion Gap 17.2 (5-19) 09/05/21 19:25 BUN 12 mg/dL (6-20) 09/05/21 19:25 Creatinine 0.6 mg/dL (0.5-0.9) 09/05/21 19:25 GFR Calculation 104.6 mL/min (90-130) 09/05/21 19:25 Glucose 147 mg/dL (65-115) H 09/05/21 19:25 Calculated Osmolality 276 mOsm/kg (285-295) L 09/05/21 19:25 Calcium 9.1 mg/dL (8.5-10.5) 09/05/21 19:25 Total Bilirubin 0.2 mg/dL (0.15-1.2) 09/05/21 19:25 AST 15 U/L (0-32) 09/05/21 19:25 ALT 15 U/L (0-33) 09/05/21 19:25 Alkaline Phosphatase 108 IU/L (35-105) H 09/05/21 19:25 Total Protein 7.8 g/dL (6.6-8.7) 09/05/21 19:25 Albumin 4.3 g/dL (3.5-5.2) 09/05/21 19:25 Globulin 3.5 g/dL (1.3-4.6) 09/05/21 19:25 HCG, Qual Negative (Negative) 09/05/21 18:13 Salicylates < 0.3 mg/dL (3-10) L 09/05/21 19:25 Urine Opiates Screen Negative ng/mL (Negative) 09/05/21 18:13 Acetaminophen < 5.0 ug/mL (10-30) L 09/05/21 19:25 Ur Barbiturates Screen Negative ng/mL (Negative) 09/05/21 18:13 Ur Phencyclidine Scrn Negative ng/mL (Negative) 09/05/21 18:13 Ur Amphetamines Screen Positive ng/mL (Negative) H 09/05/21 18:13 U Benzodiazepines Scrn Negative ng/mL (Negative) 09/05/21 18:13 Urine Cocaine Screen Negative ng/mL (Negative) 09/05/21 18:13 U Marijuana (THC) Screen Positive ng/mL (Negative) H 09/05/21 18:13 Discharge Plan Discharge Patient Disposition: Admitted As Inpatient Clinical Impression: Suicidal ideation, Depression, Current recreational drug use Condition: Stable Prescriptions: No Action No Known Home Medications 0RF Coding Level of Care Code ED Informal Waiter/Waitress for David Fwd Exam Comprehensive
[2021-09-05 18:33] LABS: Amphetamines Screen Urine Positive (Negative); Barbiturates Screen Urine Negative (Negative); Benzodiazepines Screen Urine Negative (Negative); Cocaine Screen Urine Negative (Negative); HCG Qualitative Urine. Negative (Negative); Opiate Screen Urine Negative (Negative); PCP Screen Urine Negative (Negative); THC Screen Urine Positive (Negative)
--- NOTE | 2021-09-05 19:11 | PC.NURSE ---
190 Assumed pt care from Sallie ASHLEY
[2021-09-05 19:37] LABS: Basophils % 0.3 %; Eosinophils # 0.1 10^3/uL (0.0-0.8); Eosinophils % 0.7 %; Hematocrit 43.2 % (37.0-47.0); Hemoglobin 14.9 g/dL (11.5-15.3); Lymphocytes # 1.6 10^3/uL (0.8-4.8); Lymphocytes % 23.7 %; Mean Corpuscular HGB Conc 34.5 g/dL (30.0-36.0); Mean Corpuscular Hemoglobin 30.3 pg (28.0-34.0); Monocytes # 0.5 10^3/uL (0.2-0.9); Monocytes % 7.6 %; Neutrophils # 4.63 10^3/uL (1.8-7.7); Neutrophils % 67.4 %; Nucleated Red Blood Cells % 0 %; Platelet Count 311 10^3/cmm (130-400); Red Blood Count 4.91 10^6/uL (4.1-5.3); Red Cell Distribution Width 12.7 % (12.1-15.1); White Blood Count 6.9 10^3/uL (4.0-10.0)
[2021-09-05 20:07] LABS: Acetaminophen < 5.0 ug/mL (10-30); Alanine Aminotransferase 15 U/L (0-33); Albumin Level 4.3 g/dL (3.5-5.2); Alkaline Phosphatase 108 IU/L (35-105); Anion Gap 17.2 (5-19); Aspartate Amino Transferase 15 U/L (0-32); Blood Urea Nitrogen 12 mg/dL (6-20); Calcium 9.1 mg/dL (8.5-10.5); Carbon Dioxide 20 mmol/L (22-29); Chloride 98 mmol/L (98-107); Globulin 3.5 g/dL (1.3-4.6); Glomerular Filtration Rate 104.6 mL/min (90-130); Glucose 147 mg/dL (65-115); Osmolality Calculated 276 mOsm/kg (285-295); Potassium 3.2 mmol/L (3.5-5.1); Salicylate < 0.3 mg/dL (3-10); Sodium 132 mmol/L (136-145); Total Bilirubin 0.2 mg/dL (0.15-1.2); Total Protein 7.8 g/dL (6.6-8.7)
[2021-09-05] MEDS: potassium bicarb 25 mEq Tablet PO (20:53)
--- NOTE | 2021-09-06 01:14 | PC.NURSE ---
patient up in day room, very tearful.
[2021-09-06] MEDS: hyDROXYzine 25 mg Capsule 50 MG PO ×2 (01:46→15:48)
--- NOTE | 2021-09-06 02:22 | PC.NURSE ---
patient up in day room, tearful, weeping
[2021-09-06] MEDS: OLANZapine 5 mg ODT PO ×3 (02:27→15:48)
[2021-09-06 06:00] VITALS: BP 108/71; PULSE 68; RESP 18; TEMP 36.6; O2SAT 97
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
[2021-09-06] MEDS: LORazepam 2 mg/mL INJ 1 mL IM ×2 (12:01→15:48)
[2021-09-06] MEDS: diphenhydrAMINE 50 mg/mL SDV 1mL IM ×2 (12:01→15:49)
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
--- NOTE | 2021-09-06 16:08 | PC.NURSE ---
Patient had here during visiting hours, patient got agressive and violtalewith yelling profanities and kicking, we asked to leave premises and this angered patient and attempted to break through the nurse and REFUND CLERK but door had been closed and was not able to get through. Then got patient back to room and called physician for new orders. Patient attempting to call on phone and getting worked up so phone line was disconnected. Monitoring closely.
[2021-09-06 20:49] VITALS: RESP 16
[2021-09-07 06:00] VITALS: BP 117/79; PULSE 90; RESP 18; TEMP 36.6; O2SAT 96
--- NOTE | 2021-09-07 06:32 | PC.NURSE ---
patient burst out of room, yelling in garcía can't have the door closed all the way because it's the law, no phone on after certain times, FUCK YOU
[2021-09-07] MEDS: hyDROXYzine 25 mg Capsule 50 MG PO ×2 (06:37→16:16)
[2021-09-07] MEDS: diphenhydrAMINE 50 mg/mL SDV 1mL IM (07:26)
[2021-09-07] MEDS: OLANZapine 5 mg ODT PO ×2 (07:26→15:11)
[2021-09-07] MEDS: LORazepam 2 mg/mL INJ 1 mL IM (07:26)
--- NOTE | 2021-09-07 07:29 | PC.NURSE ---
PRN Medication This RN came out of report this AM and was told by DIETITIAN TEACHER and staff that pt. became very agitated while on the phone with her and preceded to go into room, flip her mattress over and throw her drink. When this RN arrived pt. was calm and agreed to take a PO zydis 5 mg, Ativan 2 mg IM and Benadryl 50 mg IM. Medications were given at 0725 as ordered. Ativan given to left deltoid and Benadryl given to right deltoid. Once medications were given she agreed with RN's on duty that she could use the phone if she remained calm. Dr. Moon out to speak to patient.
--- NOTE | 2021-09-07 07:39 | W.PM.NPUPNS ---
Subjective NPU Subjective: She had a meltdown yesterday afternoon when her came to visit. She had another meltdown this morning on the phone when she talked with him. She slept relatively well. She said that she is partly upset because she is trapped in here due to her 's lies. She said that she has decided to stop using medications for her borderline personality disorder about 10 years ago. She does not have insurance to pay for the new medications that seem to be good for bipolar depression and borderline personality disorder. She said that she does not think she has used Lamictal or Depakote. She does not want to consider medications at this time. Mental Status Exam MSE Comments: This is a 55-year-old appropriate weight female who appears somewhat older than her stated age and is in no acute distress. She was pleasant and cooperative with the evaluation. She is more calm because she just had an outburst and has settled down and is getting medication. psychomotor activity is normal Speech is at a regular rate and rhythm, normal volume, good articulation, not pressured. Alert, oriented X3 Attention and concentration appears to be normal. Memory is intact Mood is depressed. Affect is very dysphoric and tearful throughout most of the interview. Thought process is logical and goal-directed. Thought content: Denies auditory and visual hallucinations. No delusions or paranoia are noted. No current suicidal ideation. He denies homicidal ideation. Fund of knowledge is probably average. Insight and judgment appear to be poor. Impulse control is poor. Cognition: Patient Appearance: Disheveled/Poor Hygiene Level of Consciousness: Awake and Alert Patient Cognition Impaired: No Ability to Follow Directions: Excellent Patient Orientation (long list): Person, Place, Time and Year Comprehension Ability: No Impairment Hallucination Type: None Delusion Description: Not Present Thought Process: Blocking Affect: Affect Description: Flat and Labile Depressive Symptoms: Crying Spells, Difficulty Concentrating, Difficulty Making Decisions, Feelings of Guilt, Feelings of Worthlessness, Hopelessness, Increased Anxiety, Increased Fatigue, Increased Irritability, Loss of Interest in Activities, Low Self Esteem and Unhappiness Behavior: Patient Behavior: Cooperative and Withdrawn Speech Pattern: Clear Vitals/I&O/Wt Last Vital Signs Temp 97.8 F 09/07/21 06:00 Pulse 90 09/07/21 06:00 Resp 18 09/07/21 06:00 BP 117/79 09/07/21 06:00 Pulse Ox 96 09/07/21 06:00 09/06/21 09/07/21 09/07/21 22:59 06:59 14:59 Intake Total 480 / 720 Balance 480 / 720 Weight last 48 hrs Weight 63.503 kg Data NPU : 09/05/21 19:25 09/05/21 19:25 A&P Assessment and plan (1) Borderline personality disorder: Status: Acute (2) PTSD (post-traumatic stress disorder): Status: Acute (3) Suicidal ideation: Status: Acute (4) Methamphetamine abuse: Status: Acute (5) Partner relational problem: Status: Acute Plan This is a 55-year-old female with borderline personality disorder and chronic methamphetamine abuse with recent partner relational problems. Plan: 1. We will observe just on as needed medications for now. We will continue to discuss medications for possible use. 2. Continue every 15 minute checks for safety. 3. Encourage individual, group and milieu therapies. 4. Encourage sober living treatment after discharge at the highest level of care to which she is willing to commit. 5. We will monitor for safety for herself in the community prior to discharge. Involuntary Hold Information 96 Hour Hold: 96 Hour Involuntary Admission: Yes Attestations NPU Medical Necessity Statement*: Inpatient hospitalization is medically necessary and the clinically appropriate intervention at this time. We will initiate medications and make changes as indicated. Coding Level of Care Code Acute Clinical Laboratory Scientist for David Elias Diagnoses Borderline personality disorder F60.3 PTSD (post-traumatic stress disorder) F43.10 Suicidal ideation R45.851 Methamphetamine abuse F15.10 Partner relational problem Z63.0
[2021-09-07 14:00] VITALS: BP 117/76; PULSE 70; RESP 18; TEMP 36.8; O2SAT 95
--- NOTE | 2021-09-07 15:22 | PC.NURSE ---
At approximately 1510 patient up at nurses station using phone crying and yelling at . Discussed reason for patient not being able to visit with today. Patient verbally abusive toward staff. Zyprexa 5 mg sl given for increased agitation and anxiety by medication nurse.
[2021-09-07 22:00] VITALS: BP 135/60; PULSE 89; RESP 16; TEMP 36.6
[2021-09-08] MEDS: hyDROXYzine 25 mg Capsule 50 MG PO ×3 (03:21→17:31)
[2021-09-08 06:00] VITALS: BP 117/70; PULSE 64; RESP 16; TEMP 36.3; O2SAT 98; BMI 24.0
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
[2021-09-08] MEDS: OLANZapine 5 mg ODT PO (12:24)
--- NOTE | 2021-09-08 12:25 | PC.NURSE ---
PRN MEDICATIONS CONTINUES TO YELL, SCREAM AND BE TEARFUL WHILE SPEAKING TO AND DAUGHTER ON PHONE. VERBALLY REDIRECTED SEVERAL TIMES. OFFERED PRN ZYDIS, STATES SHE WILL TAKE IT. CONTINUED TO STAY ON THE PHONE CRYING AND AGITATED. DID EVENTUALLY HANG UP PHONE AND COME TO NURSES STATION TO GET PRN ZYDIS. PT WENT TO ROOM TO LIE DOWN AFTER SHE RECEIVED HER MEDICATION
[2021-09-08 13:46] VITALS: BP 113/76; PULSE 76; RESP 17; TEMP 36.8; O2SAT 98
[2021-09-08 22:00] VITALS: BP 115/78; PULSE 74; RESP 16; TEMP 36.3; O2SAT 95
[2021-09-09 06:00] VITALS: BP 120/83; PULSE 74; RESP 16; TEMP 36.4; O2SAT 93
[2021-09-09] MEDS: hyDROXYzine 25 mg Capsule 50 MG PO (09:06)
--- NOTE | 2021-09-09 09:07 | PC.NURSE ---
PRN VISTARIL 50 MG GIVEN PO PER PT C/O STATED ANXIETY
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
[2021-09-09 11:20] VITALS: BP 120/83; PULSE 74; RESP 16; TEMP 36.4; O2SAT 93
--- NOTE | 2021-09-09 11:30 | PC.NURSE ---
DISCHARGE NOTE DISCHARGE TEACHING COMPLETED. NO PRESCRIPTIONS ORDERED. REVIEWED ALL APPOINTMENTS. ALL QUESTIONS ANSWERED AND SUPPORT VOICED. LEFT VIA [facility] AT 1129, LEFT WITH ALL BELONGINGS.
== END 2021-09-09 11:29 | disposition home or self-care (01) | DRG 881 ==
LOC: ER 20:22 → NP 20:31
PROVIDERS: Admitting Provider Psychiatry & Neurology Psychiatry; Emergency Provider Emergency Medicine; Visit Provider Psychiatry & Neurology Psychiatry
DX: F32.A Depression, unspecified (principal); R45.851 Suicidal ideations; F12.90 Cannabis use, unspecified, uncomplicated; F15.10 Other stimulant abuse, uncomplicated; F60.3 Borderline personality disorder; F43.10 Post-traumatic stress disorder, unspecified; Z63.0 Problems in relationship with spouse or partner
CPT/HCPCS: 80053; 80306; 80307; 81025; 85025; 96372; 97165; 99285; J1200; J2060

== ENCOUNTER 2022-05-14 16:18 | Emergency (ER) | payer SELFPAY ==
[2022-05-14 16:25] VITALS: RESP 17; BMI 23.1
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
--- NOTE | 2022-05-14 16:53 | ED_ITS ---
Documented by User: KENJI Schroeder 05/14/22 16:57 HPI - Head Injury General: Chief complaint: Trauma Stated complaint: head lac Time Seen by Provider: 05/14/22 16:52 Source: patient Mode of arrival: ambulatory Limitations: no limitations History of Present Illness: Patient is a 56-year-old female who presents to ED today for evaluation following a head injury. Patient states she was at work when a log overhead at approximately 8 feet fell and landed directly onto the top of her scalp. Patient states she did not lose consciousness. She has complained of a headache and some dizziness since. She did sustain a laceration. Last tetanus is unknown. She states this did happen at work but does not want to file through workers comp injury. MD Complaint: head injury Onset (ago): hour(s) Place: work Loss of Consciousness: no Severity: moderate Radiation: none Other Injuries: none Associated symptoms: Reports no associated symptoms; Deny nausea, neck pain or vomiting Review of Systems Eyes: Denies: change in vision, blurry vision or photophobia GI: Denies: nausea or vomiting Musc: Denies: neck pain Skin/Breast: Reports: other (scalp laceration) Neuro: Reports: headache(s) and dizziness; Denies: numbness in extremities, weakness in extremities or sensory changes PFS ED PFSH: Social History Smoking and tobacco status: current every day smoker Physical Exam Const: COMMON NORMALS: no acute distress, average body habitus, patient oriented x3, no limitations, healthy appearing, alert and well nourished GENERAL APPEARANCE: cooperative ORIENTATION/CONSCIOUSNESS: Yes awake, Yes oriented to person, Yes oriented to place and Yes oriented to time HENMT: COMMON NORMALS: normocephalic HEAD & SCALP: normal to inspection and normocephalic HEAD IMAGES: 1. 1 in scalp laceration; bleeding controlled FACE & SINUS: normal facial exam Eye: GENERAL EYE: appearance normal, both eyes and all related structures Neck/C-Spine: COMMON NORMALS: full ROM GENERAL: Yes normal visual inspection CERVICAL SPINE: No pain with cervical ROM, No Cervical spine tenderness, No step off deformity and No Paracervical muscle tenderness Extremity: COMMON NORMALS: normal to inspection GENERAL: Yes normal exam except as noted Neuro: MICHELLE COMA SCALE: document GCS findings Michelle coma scale eye opening: Spontaneous [place] coma scale verbal response: Orientated Michelle coma scale motor response: Obey commands Michelle coma scale total score: 15 COMMON NORMALS: patient oriented x3, CN's II-XII intact bilaterally, moves all extremities, no focal motor deficits, no sensory deficits noted and gait normal SENSORIUM/ORIENTATION: Yes alert, Yes oriented to person, Yes oriented to place and Yes oriented to time Skin: TRAUMA: laceration (scalp laceration) Course Vital Signs: Vital signs: Vital Signs Respiratory Rate 17 05/14/22 16:25 Oxygen Delivery Me thod 05/14/22 16:25 MDM - Head Injury Lab Data Radiology Impressions Head CT 05/14/22 16:52 IMPRESSION: Negative for intracranial hemorrhage or mass effect Discharge Plan Discharge Patient Disposition: Home Clinical Impression: Head injury, acute Laceration of scalp Qualifiers: Encounter type: initial encounter Qualified Code(s): S01.01XA - Laceration without foreign body of scalp, initial encounter Condition: Stable Prescriptions: No Action No Known Home Medications Discharge Orders: Discharge ED (Routine); Ordered 05/14/22 Ordered By: Damaso Sheppard Discharge Diet: Usual diet Discharge Activity: Increase activity as tolerated Patient Instructions: Laceration (ED) Activity Restrictions/Additional Instructions: Home and rest. Keep wound clean and dry as much as possible. After showering today I would strongly recommend avoiding getting wound wet for the next 48 hours. After that you can wash as normal. Sutures need to come out in 7 days. Follow-up with primary care for further instruction. Return to ED for new concerns or worsening symptoms. Sign Out Sign Out Data: Patient Sign Out occurred on 05/14/22 at 16:59. Patient's care was discussed, and care was transferred from to Damaso Sheppard. Post-Handoff Eval: Patient resting well. Awaiting CT results. Coding Level of Care Code ED Stripping And Booking Machine Operator for Chg Fwd Exam Detailed Documented by User: HILARIA Orr 05/14/22 17:35 HPI - Head Injury General: Chief complaint: Trauma Stated complaint: head lac Time Seen by Provider: 05/14/22 16:52 [facility] ED PFSH: Social History Smoking and tobacco status: current every day smoker Physical Exam HENMT: HEAD IMAGES: 1. 1 in scalp laceration; bleeding controlled Neuro: MICHELLE COMA SCALE: document GCS findings Michelle coma scale total score: 15 Course Vital Signs: Vital signs: Vital Signs Respiratory Rate 17 05/14/22 16:25 Oxygen Delivery Me thod 05/14/22 16:25 MDM - Head Injury Medcial Decision Making Patient presents with injury to the scalp secondary from a piece of wood striking her in the head while at work. On exam there is a 2-1/2 cm laceration to the frontal scalp area. No palpable crepitus is noted. Vital signs are unremarkable. Patient denies any loss of consciousness. Differential diagnosis includes intracranial bleeding, skull fracture, concussion, laceration. CT of the head noted no fracture or intracranial bleeding. Patient appears nontoxic. No signs of serious injury is noted. Wound was closed with 3 isamar patient tolerated well. Reviewed postprocedure care and instructions with patient with recommendations for further treatment and follow-up. Lab Data Radiology Impressions Head CT 05/14/22 16:52 IMPRESSION: Negative for intracranial hemorrhage or mass effect Discharge Plan Discharge Patient Disposition: Home Clinical Impression: Head injury, acute Laceration of scalp Qualifiers: Encounter type: initial encounter Qualified Code(s): S01.01XA - Laceration without foreign body of scalp, initial encounter Condition: Stable Prescriptions: No Action No Known Home Medications Discharge Orders: Discharge ED (Routine); Ordered 05/14/22 Ordered By: Damaso Sheppard Discharge Diet: Usual diet Discharge Activity: Increase activity as tolerated Patient Instructions: Laceration (ED) Activity Restrictions/Additional Instructions: Home and rest. Keep wound clean and dry as much as possible. After showering today I would strongly recommend avoiding getting wound wet for the next 48 hours. After that you can wash as normal. Sutures need to come out in 7 days. Follow-up with primary care for further instruction. Return to ED for new concerns or worsening symptoms. Sign Out Sign Out Data: Patient Sign Out occurred on 05/14/22 at 16:59. Patient's care was discussed, and care was transferred from to Damaso Sheppard. Post-Handoff Eval: Patient resting well. Awaiting CT results. Coding Level of Care Code ED Stripping And Booking Machine Operator for David Fwd Exam Detailed
[2022-05-14] MEDS: tetanus-diphtheria tox (adult) 0.5 mL SDV IM (17:22)
--- NOTE | 2022-05-21 16:58 | PC.NURSE ---
Removed 3 isamar from top of head, wound looked good with no draining or bleeding
== END 2022-05-14 17:50 | disposition home or self-care (01) ==
PROVIDERS: Emergency Provider Nurse Practitioner Family
DX: S01.01XA Laceration without foreign body of scalp, initial encounter (principal); F17.210 Nicotine dependence, cigarettes, uncomplicated; W20.8XXA Other cause of strike by thrown, projected or falling object, initial encounter; S09.90XA Unspecified injury of head, initial encounter; Z23 Encounter for immunization
CPT/HCPCS: 70450; 90471; 90714; 99284

== ENCOUNTER 2023-09-01 09:49 | Emergency (ER) | payer SELFPAY ==
[2023-09-01 09:53] VITALS: BP 154/84; PULSE 63; TEMP 36.8; O2SAT 99; BMI 23.1
--- NOTE | 2023-09-01 10:00 | XRR_ITS ---
PROCEDURE INFORMATION: Exam: XR Chest Exam date and time: 09/01/2023 10:17 AM Age: 57 years old Clinical indication: Chest wall pain and left-sided; Additional info: L chest/rib pain TECHNIQUE: Imaging protocol: Radiologic exam of the chest. Views: 1 view. COMPARISON: CT kidney stone [id number] 03/07/2019 7:09 PM FINDINGS: Lungs: Unremarkable. No consolidation. Pleural spaces: Unremarkable. No pleural effusion. No pneumothorax. Heart/Mediastinum: Likely prominent epicardial fat pad. Bones/joints: Unremarkable. XR/XR chest 1V portable [id number] IMPRESSION: No acute cardiopulmonary findings.
--- NOTE | 2023-09-01 10:02 | ED_ITS ---
HPI - General Adult 2 General: Chief complaint: Nausea/Vomiting/Diarrhea Stated complaint: N/V Time Seen by Provider: 09/01/23 09:53 Source: patient and EMS Mode of arrival: EMS Limitations: other (pt is agitated, refusing to cooperative with vitals/history taking) History of Present Illness: Patient is a 57-year-old female presents to ED today via EMS for evaluation of left chest wall pain and nausea and vomiting. Patient states approximately 5 to 6 days ago she was using a chainsaw in her yard for several hours and states the following day she woke up with soreness in the left side of her chest. She felt like it was initially secondary to strained muscles but states pain has continued to increase. Pain is significantly worse with movement and coughing. She states she is a chronic smoker so often coughs and cannot secondary to her pain. She states this morning she began having nausea and vomiting thus prompting her to call an ambulance. She denies any direct injury/trauma to her chest or abdomen. Patient generally is agitated and noncompliant. She refused all interventions from EMS. She is extremely disgruntled here with staff refusing to allow them to obtain vital signs and generally uncooperative with my history taking and physical examination. Onset (ago): day(s) Location: chest Severity: moderate Pain Consistency: constant Relieving factors: none Exacerbating factors: movement and other (coughing) Associated symptoms: Reports chest pain (L rib pain), nausea and vomiting; Deny dyspnea, headache(s), malaise, rash, palpitations or syncope Treatments prior to arrival: none Review of Systems 2 Const: Reports: chills and other (states she gets hot and cold ); Denies: fever(s), body aches, fatigue or malaise Card: Reports: chest pain (L rib pain); Denies: palpitations, irregular heart rhythm, edema, swelling of feet/ankles, lightheadedness, syncope, pre-syncope, dyspnea on exertion, orthopnea, leg pain with exertion or acrocyanosis Resp: Reports: productive cough (chronic smoker's cough ) and pain on inspiration; Denies: dyspnea, wheezing, hemoptysis or chest congestion GI: Reports: nausea and vomiting; Denies: abdominal pain or diarrhea : Denies: flank pain, dysuria or hematuria Musc: Denies: neck pain, back pain, extremity pain, extremity swelling or joint pain Skin/Breast: Denies: rash Neuro: Denies: headache(s), numbness in extremities, weakness in extremities, sensory changes or dizziness PFSH ED 2 PFSH: Social History Smoking and tobacco/nicotine status: current every day tobacco/nicotine user Physical Exam 2 Const: COMMON NORMALS: patient oriented x3 and alert GENERAL APPEARANCE: c ooperative, appears older than stated age and other (agitated, uncooperative ) ORIENTATION/CONSCIOUSNESS: Yes awake, Yes oriented to person, Yes oriented to place and Yes oriented to time HENMT: COMMON NORMALS: normocephalic and atraumatic HEAD & SCALP: normal to inspection, normocephalic and atraumatic FACE & SINUS: normal facial exam TEETH & GINGIVA: Yes poor dentition Eye: GENERAL EYE: appearance normal, both eyes and all related structures and normal light reflex DIRECT OPHTHALMOSCOPY: Yes normal light reflex Neck/C-Spine: COMMON NORMALS: full ROM, no lymphadenopathy, no meningeal signs and no JVD GENERAL: Yes normal visual inspection Chest: COMMONS NORMALS: normal inspection of the chest OTHER: TTP L lateral chest wall Resp: COMMON NORMALS: normal respiratory effort AUSCULTATION: rhonchi and other (course breath sounds throughout) Cardio: COMMON NORMALS: no JVD, regular rate and regular rhythm RATE: r egular rate RHYTHM: regular rhythm GI: COMMON NORMALS: Normal to inspection, nondistended, normoactive bowel sounds present, Soft to palpation, non-tender, No hepatosplenomegaly present and no masses PALPATION: Yes Soft to palpation and Yes No hepatosplenomegaly present : COMMON NORMALS: Yes no CVA tenderness BLADDER/KIDNEY EXAM: Yes no CVA tenderness Back/Pelvis: COMMON NORMALS: no CVA tenderness and thoracic and lumbar spine normal to inspection Extremity: GENERAL: Yes normal exam except as noted Neuro: MICHELLE COMA SCALE: document GCS findings Michelle coma scale eye opening: Spontaneous Steele coma scale verbal response: Orientated Michelle coma scale motor response: Obey commands Michelle coma scale total score: 15 COMMON NORMALS: patient oriented x3, moves all extremities, no focal motor deficits and no sensory deficits noted SENSORIUM/ORIENTATION: Yes alert, Yes oriented to person, Yes oriented to place and Yes oriented to time MENINGEAL SIGNS: Yes no meningeal signs Skin: COMMON NORMALS: no rashes or lesions noted GENERAL SKIN EXAM: no rashes or lesions noted Course 2 Vital Signs: Vital signs: Vital Signs Temperature 98.2 F 09/01/23 09:53 Pulse Rate 64 09/01/23 12:00 Blood Pressure 142/86 09/01/23 10:51 Pulse Oximetry 95 09/01/23 12:00 Oxygen Delivery Me thod Room Air 09/01/23 12:00 MDM - General Adult Medical Decision Making Patient is a 57-year-old female here for complaints of left chest wall pain after heavy use of a chainsaw several days ago. She has not had any direct injury or trauma to her chest wall. Pain is reproducible. Patient's care was difficult due to her agitation and overall noncompliance. She was very verbally aggressive with nursing staff over minuscule things such as her pulse ox sticker, rubber band around her arm during IV attempt, too tight sphygmomanometer, requesting urine sample, etc. Her work up here including CXR, EKG, CBC/CMP/lipase/UA. UA showing hematuria. She does not complain of any urinary symptoms but with her left lateral chest wall pain I did order CT renal thinking this could be more L flank discomforts. CT scan was essentially unremarkable other than what radiologist said was hyperdense urine that could contain blood ? Again she has no urinary symptoms. No injury/trauma. Discussed having this rechecked through PCP. Discussed treatment for chest wall strain. She declined NSAIDS. Asking for something to help with her nausea. Patient is stable from an ED standpoint. Return precautions given. Medical Records I reviewed the patient's medical records. Lab Data I reviewed the patient's lab results. 09/01/23 10:16 09/01/23 10:16 Radiology Impressions Chest X-Ray 09/01/23 10:00 IMPRESSION: No acute cardiopulmonary findings. Abdomen/Pelvis CT 09/01/23 11:38 IMPRESSION: 1. Hyperdense urine in the bladder and kidneys likely contains blood and/or protein. 2. No other acute abdominal or pelvic findings.. 3. Additional details as above. COMMENTS: Consistent with the [employer] [place] [employer]'s Incidental Findings Committee white paper (J Am Daisy Radiol 2018): Any incidental renal lesion less than 1 cm or classified as too small to characterize, or any incidental cystic renal lesion characterized as simple-appearing, is likely benign. No follow-up imaging is recommended for these lesions per consensus recommendations based on imaging criteria. Laboratory Results WBC 10.50 10^3/uL (3.29-11.43) 09/01/23 10:16 RBC 5.26 10^6/uL (3.85-5.65) 09/01/23 10:16 Hgb 15.70 g/dL (11.27-16.99) 09/01/23 10:16 Hct 45.4 % (36-47) 09/01/23 10:16 MCV 86.3 fl (85-98) 09/01/23 10:16 MCH 29.8 pg (27-33) 09/01/23 10:16 MCHC 34.6 g/dL (30-55) 09/01/23 10:16 RDW 13.4 % (12.1-15.1) 09/01/23 10:16 Plt Count 353 10^3/cmm (157-399) 09/01/23 10:16 MPV 8.9 fL (7.4-10.4) 09/01/23 10:16 Neut % (Auto) 78.5 % 09/01/23 10:16 Lymph % (Auto) 16.5 % 09/01/23 10:16 [place] % (Auto) 3.8 % 09/01/23 10:16 Eos % (Auto) 0.2 % 09/01/23 10:16 Baso % (Auto) 0.4 % 09/01/23 10:16 Neut # (Auto) 8.25 10^3/uL (1.8-7.7) H 09/01/23 10:16 Lymph # (Auto) 1.7 10^3/uL (0.8-4.8) 09/01/23 10:16 [place] # (Auto) 0.4 10^3/uL (0.2-0.9) 09/01/23 10:16 Eos # (Auto) 0.0 10^3/uL (0.0-0.8) 09/01/23 10:16 Baso # (Auto) 0.0 10^3/uL (0.0-0.1) 09/01/23 10:16 Nucleated RBC % (auto) 0 % 09/01/23 10:16 Nucleated RBCs # 0.0 /100WBC 09/01/23 10:16 Sodium 138 mmol/L (136-145) 09/01/23 10:16 Potassium 3.9 mmol/L (3.5-5.1) 09/01/23 10:16 Chloride 101 mmol/L (98-107) 09/01/23 10:16 Carbon Dioxide 21 mmol/L (22-29) L 09/01/23 10:16 Anion Gap 19.9 (5-19) H 09/01/23 10:16 BUN 9 mg/dL (6-20) 09/01/23 10:16 Creatinine 0.6 mg/dL (0.5-0.9) 09/01/23 10:16 GFR Calculation 103.8 mL/min (90-130) 09/01/23 10:16 Glucose 141 mg/dL (65-115) H 09/01/23 10:16 Calculated Osmolality 287 mOsm/kg (285-295) 09/01/23 10:16 Calcium 9.6 mg/dL (8.5-10.5) 09/01/23 10:16 Total Bilirubin 0.4 mg/dL (0.15-1.2) 09/01/23 10:16 AST 12 U/L (0-32) 09/01/23 10:16 ALT 11 U/L (0-33) 09/01/23 10:16 Alkaline Phosphatase 106 U/L (35-105) H 09/01/23 10:16 Troponin T Baseline < 6 ng/L (0-10) 09/01/23 10:16 Total Protein 7.3 g/dL (6.6-8.7) 09/01/23 10:16 Albumin 4.3 g/dL (3.5-5.2) 09/01/23 10:16 Globulin 3.0 g/dL (1.3-4.6) 09/01/23 10:16 Lipase 26 U/L (13-60) 09/01/23 10:16 Urine Color Yellow (Yellow) 09/01/23 11:09 Urine Appearance Clear (CLEAR) 09/01/23 11:09 Urine pH 9 (5-7) H 09/01/23 11:09 Ur Specific [place] 1.010 (1.005-1.030) 09/01/23 11:09 Urine Protein Neg (Negative) 09/01/23 11:09 Urine Glucose (UA) Norm (Normal) 09/01/23 11:09 Urine Ketones 1+ (Negative) H 09/01/23 11:09 Urine Blood 2+ (Negative) H 09/01/23 11:09 Urine Nitrate Negative (Negative) 09/01/23 11:09 Urine Bilirubin Neg (Negative) 09/01/23 11:09 Prot Sulfosalicylic Acd Negative (Negative) 09/01/23 11:09 Urine Urobilinogen Norm mg/dL (Negative) 09/01/23 11:09 Ur Leukocyte Esterase Negative (Negative) 09/01/23 11:09 Urine RBC 5-10 /hpf (0-2) H 09/01/23 11:09 Urine WBC 0-4 /hpf (0-5) H 09/01/23 11:09 Ur Squamous Epith Cells 0-4 /hpf (0-5) H 09/01/23 11:09 Amorphous Sediment Trace /hpf 09/01/23 11:09 Urine Bacteria Trace /hpf (NONE) 09/01/23 11:09 Urine Mucus 3+ /hpf 09/01/23 11:09 All radiology interpretation(s) finalized by discharge Discharge Plan Discharge Patient Disposition: Home Clinical Impression: Chest wall muscle strain Qualifiers: Encounter type: initial encounter Qualified Code(s): S29.011A - Strain of muscle and tendon of front wall of thorax, initial encounter Hematuria Qualifiers: Hematuria type: other microscopic Qualified Code(s): R31.29 - Other microscopic hematuria Condition: Stable Prescriptions: New ondansetron 4 mg tablet,disintegrating 4 mg PO Q8H PRN (Reason: nausea and vomiting) Qty: 14 0RF Discharge Orders: Discharge ED (Routine); Ordered 09/01/23 Ordered By: Katrina Navarro Patient Instructions: Chest Pain - Chest Wall, Chest Wall Pain (ED) Activity Restrictions/Additional Instructions: As we discussed your workup today overall was benign. Your pain most likely secondary to a chest wall musculoskeletal strain. We discussed conservative therapies at home for this. As we discussed you did have microscopic blood in your urine today. You are not having any urinary symptoms. Please have this rechecked through primary care in the next few weeks. Coding Level of Care Code ED [employer] Specialist for David Elias
[2023-09-01] MEDS: ondansetron 2 mg/ML SDV 2 mL 4 MG IVP (10:22)
--- NOTE | 2023-09-01 10:25 | ECG_ITS ---
[facility] Test Date: 2023-09-01 Pat Name: Helen Thorpe Department: Room: Gender: Female Occupational Health Rn: : 1965 Requested By: Katrina Navarro Order Number: [id number] Tim MD: Brett Oviedo M.D. Measurements Intervals [place] Rate: 59 P: 85 MD: 217 QRS: 81 QRSD: 79 T: 80 QT: 434 QTc: 432 Interpretive Statements SINUS BRADYCARDIA WITH FIRST DEGREE AV BLOCK No previous ECG available for comparison Electronically Signed On 09-01-2023 23:04:27 CDT by Brett Oviedo M.D. [id number]
[2023-09-01] MEDS: ketorolac 30 mg/mL INJ IVP (10:50)
[2023-09-01 10:51] VITALS: BP 142/86
[2023-09-01] MEDS: orphenadrine 30 mg/mL Inj 2 mL 60 MG IVP (10:51)
[2023-09-01 10:52] LABS: Basophils % 0.4 %; Eosinophils % 0.2 %; Hematocrit 45.4 % (36-47); Lymphocytes # 1.7 10^3/uL (0.8-4.8); Lymphocytes % 16.5 %; Mean Corpuscular HGB Conc 34.6 g/dL (30-55); Mean Corpuscular Hemoglobin 29.8 pg (27-33); Mean Corpuscular Volume 86.3 fl (85-98); Mean Platelet Volume 8.9 fL (7.4-10.4); Monocytes # 0.4 10^3/uL (0.2-0.9); Monocytes % 3.8 %; Neutrophils # 8.25 10^3/uL (1.8-7.7); Neutrophils % 78.5 %; Nucleated Red Blood Cells % 0 %; Platelet Count 353 10^3/cmm (157-399); Red Blood Count 5.26 10^6/uL (3.85-5.65); Red Cell Distribution Width 13.4 % (12.1-15.1)
[2023-09-01 11:00] VITALS: PULSE 65; O2SAT 100
[2023-09-01 11:13] LABS: Alanine Aminotransferase 11 U/L (0-33); Albumin Level 4.3 g/dL (3.5-5.2); Alkaline Phosphatase 106 U/L (35-105); Anion Gap 19.9 (5-19); Aspartate Amino Transferase 12 U/L (0-32); Blood Urea Nitrogen 9 mg/dL (6-20); Calcium 9.6 mg/dL (8.5-10.5); Carbon Dioxide 21 mmol/L (22-29); Chloride 101 mmol/L (98-107); Glomerular Filtration Rate 103.8 mL/min (90-130); Glucose 141 mg/dL (65-115); Lipase 26 U/L (13-60); Osmolality Calculated 287 mOsm/kg (285-295); Potassium 3.9 mmol/L (3.5-5.1); Sodium 138 mmol/L (136-145); Total Bilirubin 0.4 mg/dL (0.15-1.2); Total Protein 7.3 g/dL (6.6-8.7); Troponin(5th) Baseline < 6 ng/L (0-10)
[2023-09-01 11:30] VITALS: PULSE 61; O2SAT 97
[2023-09-01 11:32] LABS: Bilirubin Urine Neg (Negative); Blood Urine 2+ (Negative); Glucose Urine UA Norm (Normal); Ketones Urine 1+ (Negative); Nitrate Urine Negative (Negative); Protein Urine Neg (Negative); Sulfosalicylic Acid Urine Negative (Negative); Urine Appearance Clear (CLEAR); Urine Color Yellow (Yellow); pH Urine 9 (5-7)
[2023-09-01 11:33] LABS: Add Urine Microscopic? YES; Leukocyte Esterase Urine Negative (Negative); Urobilinogen Urine Norm (Negative)
[2023-09-01 11:37] LABS: Add Urine Culture? No; Amorphous Sediment Urine TRACE /hpf; Bacteria Urine TRACE /hpf; Mucus Urine 3+ /hpf; Squamous Epithelial Cell Urine 0-4 /hpf (0-5); WBC Urine 0-4 /hpf (0-5)
--- NOTE | 2023-09-01 11:38 | CTR_ITS ---
PROCEDURE INFORMATION: Exam: CT Abdomen And Pelvis Without Contrast Exam date and time: 09/01/2023 11:51 AM Age: 57 years old Clinical indication: Abdominal pain; Localized; Left; Additional info: L flank/back pain; Hematuria TECHNIQUE: Imaging protocol: Computed tomography of the abdomen and pelvis without contrast. Radiation optimization: All CT scans at this facility use at least one of these dose optimization techniques: automated exposure control; mA and/or kV adjustment per patient size (includes targeted exams where dose is matched to clinical indication); or iterative reconstruction. COMPARISON: CT kidney stone [id number] 03/07/2019 7:09 PM RADIATION DOSE METRICS: Total DLP (mGy-cm): 360.87 FINDINGS: Lungs: Scarring left lung base. Decreased atelectasis in the lung bases. Liver: Two small hepatic cysts are unchanged, so need no follow-up. One small cyst that was anteriorly in the liver has resolved. Unchanged moderate hepatomegaly. Otherwise, unremarkable. Gallbladder and bile ducts: Normal. No calcified stones. No ductal dilation. Pancreas: Normal. No ductal dilation. Spleen: Normal. No splenomegaly. Adrenal glands: A 1.5 cm x 1 cm left adrenal nodule is not significantly changed, so is considered benign. Otherwise, unremarkable. Kidneys and ureters: Slightly hyperdense urine in the kidneys probably containing blood and/or protein. Otherwise, unremarkable. Stomach and bowel: Unremarkable. Appendix: The appendix is not clearly identified, but there is no obvious pericecal inflammation. Intraperitoneal space: Unremarkable. No free air. No significant fluid collection. Vasculature: New small amount of arterial calcification. Otherwise, unremarkable noncontrast vasculature. Lymph nodes: Unremarkable. No enlarged lymph nodes. Urinary bladder: Nearly empty urinary bladder, but diffusely hyperdense suggesting it contains blood and/or protein. Otherwise, unremarkable. Reproductive: Unremarkable as visualized. Bones/joints: Unchanged mild scoliosis with mild and moderate multilevel spondylosis. Slightly increased few mm retrolisthesis of L1 on L2. Unchanged deformity, probably congenital, of the left hip with arthritis. Otherwise, unremarkable. Soft tissues: Otherwise, unremarkable visualized body wall. Otherwise, unremarkable soft tissues. CT/CT kidney stone [id number] IMPRESSION: 1. Hyperdense urine in the bladder and kidneys likely contains blood and/or protein. 2. No other acute abdominal or pelvic findings.. 3. Additional details as above. COMMENTS: Consistent with the [employer]'s Incidental Findings Committee white paper (J Am Daisy Radiol 2018): Any incidental renal lesion less than 1 cm or classified as too small to characterize, or any incidental cystic renal lesion characterized as simple-appearing, is likely benign. No follow-up imaging is recommended for these lesions per consensus recommendations based on imaging criteria.
[2023-09-01 12:00] VITALS: PULSE 64; O2SAT 95
== END 2023-09-01 12:44 | disposition home or self-care (01) ==
PROVIDERS: Emergency Provider Physician Assistant
DX: S29.011A Strain of muscle and tendon of front wall of thorax, initial encounter (principal); R31.29 Other microscopic hematuria; Z72.0 Tobacco use; X50.9XXA Other and unspecified overexertion or strenuous movements or postures, initial encounter
CPT/HCPCS: 71045; 74176; 80053; 81001; 83690; 84484; 85025; 93005; 96374; 96375; 99285; J1885; J2360; J2405